=== PATIENT | female | born 1955 | race Caucasian/White ===

== ENCOUNTER 2018-02-22 16:02 | Emergency (ER) | payer MEDICAID, OTHER ==
[2018-02-22 16:02] VITALS: BMI 31.3
[2018-02-22 16:13] VITALS: BP 145/81; PULSE 78; RESP 18; TEMP 98; O2SAT 100
--- NOTE | 2018-02-22 18:27 | RAD ---
PROCEDURE: Left Foot Radiographs. HISTORY: left foot plantar pain, no trauma COMPARISON: None. FINDINGS: BONES: Normal. No fracture. JOINTS: Normal. SOFT TISSUES: Normal. OTHER FINDINGS: None. IMPRESSION: Normal left foot radiographs.
--- NOTE | 2018-02-22 18:34 | C.PDOC ---
History Of Present Illness 62 year old female presents to the ED c/o on going plantar left foot pain for the past 2 weeks. Patient denies any injury, trauma, fall, weakness, numbness. Time Seen by Provider: 02/22/18 16:25 Chief Complaint (Nursing): Lower Extremity Problem/Injury History Per: Patient History/Exam Limitations: no limitations Onset/Duration Of Symptoms: Days Current Symptoms Are (Timing): Still Present Recent travel outside of the [place]: No Additional History Per: Patient - Ankle/Foot Description Of Injury: Other Currently Unable To: Bend Or Move Past Medical History Reviewed: Historical Data, Nursing Documentation, Vital Signs Vital Signs: Last Vital Signs Temp 98 F 02/22/18 16:09 Pulse 78 02/22/18 16:09 Resp 18 02/22/18 16:09 BP 145/81 02/22/18 16:09 Pulse Ox 100 02/22/18 18:34 - Medical History PMH: Anemia, Arthritis, Colonic Polyps, HTN, Hypercholesterolemia, Hypothyroidism Denies: Chronic Kidney Disease Surgical History: No Surg Hx - [facility] Procedures ENDOSC POLYPECTOMY OF LG INTEST (09/22/13) Family History: States: Unknown Family Hx - Social History Hx Alcohol Use: No Hx Substance Use: No - Immunization History Hx Tetanus Toxoid Vaccination: No Hx Influenza Vaccination: No Hx Pneumococcal Vaccination: No Review Of Systems Constitutional: Negative for: Fever, Chills Cardiovascular: Negative for: Chest Pain Respiratory: Negative for: Shortness of Breath Gastrointestinal: Negative for: Abdominal Pain Musculoskeletal: Positive for: Foot Pain Skin: Negative for: Rash Physical Exam - Physical Exam Appears: Non-toxic, No Acute Distress Skin: Normal Color, Warm, Dry Head: Atraumatic, Normacephalic Eye(s): bilateral: Normal Inspection Nose: No Discharge Oral Mucosa: Moist Extremity: Normal ROM, Tenderness (lateral plantar aspect left mid foot. Mid foot has a callus which is tender to palpation ), Capillary Refill (< 2 seconds) , No Swelling Pulses: Left Dorsalis Pedis: Normal, Right Dorsalis Pedis: Normal Neurological/Psych: Oriented x3, Normal Motor, Normal Sensation Gait: Steady ED Course And Treatment O2 Sat by Pulse Oximetry: 100 (ON RA) Pulse Ox Interpretation: Normal - Other Rad Left Foot X-Ray X-Ray: Read By Radiologist Interpretation: Accession No. : [id number]. Patient Name / ID : SANDRA Headley / [id number]. Exam Date : 02/22/2018 17:21:28 ( Approved ). Study Comment : Sex / Age : F / [id number]. Creator : Smooth See MD. Dictator : Smooth See MD. Furnace Checker : Country Director : Smooth See MD. Approver2 : Report Date : 02/22/2018 18:26:21. My Comment : . PROCEDURE: Left Foot Radiographs. HISTORY: left foot plantar pain, no trauma. COMPARISON: None. FINDINGS: BONES: Normal. No fracture. JOINTS: Normal. SOFT TISSUES: Normal. OTHER FINDINGS: None. IMPRESSION: Normal left foot radiographs. Medical Decision Making Medical Decision Making: Impression: left foot pain Plan: * Left foot X-Ray Patient was given information for follow up with acid bleacher in 2 days for further evaluation. Disposition - Disposition Referrals: Everardo Braswell DPM [Staff Provider] - Darryl Argueta DPM [Doctor Podiatric Medicine] - Yue Enriquez DPM [Staff Provider] - Tino Enriquez DPM [Medical Doctor] - Disposition: HOME/ ROUTINE Disposition Time: 18:32 Condition: STABLE Additional Instructions: Follow up with PMD and Competitive Athlete within 1-2 days. Return to ED if feel worse. Prescriptions: Naproxen [Naprosyn] 1 tab PO BID PRN #25 tab PRN Reason: Pain Famotidine [Pepcid] 20 mg PO BID #20 tab Instructions: Corns and Calluses Forms: [facility] (Croatian) - Clinical Impression Clinical Impression: Foot pain - PA / DROP FORGE OPERATOR / Resident Statement MD/DO has reviewed & agrees with the documentation as recorded. - Scribe Statement The provider has reviewed the documentation as recorded by the Scribe Parth Plummer All medical record entries made by the Scribe were at my direction and personally dictated by me. I have reviewed the chart and agree that the record accurately reflects my personal performance of the history, physical exam, medical decision making, and the department course for this patient. I have also personally directed, reviewed, and agree with the discharge instructions and disposition.
== END 2018-02-22 18:55 | disposition home or self-care (01) ==
LOC: C.ER 16:02
DX: M79.672 Pain in left foot (principal)

== ENCOUNTER 2018-09-17 15:27 | Emergency (ER) | payer MEDICAID ==
[2018-09-17 15:28] VITALS: BMI 31.3
--- NOTE | 2018-09-17 17:43 | C.PDOC ---
History Of Present Illness 63 year old female with history of diabetes, hypertension, and goiter presents to ED complaining of bilateral sore throat for the past few days associated with a cough. Patient reports it hurts when she swallows and eats. Denies fever, chills, shortness of breath, weakness, numbness, sick contacts. Time Seen by Provider: 09/17/18 15:48 Chief Complaint (Nursing): ENT Problem History Per: Patient Onset/Duration Of Symptoms: Days Current Symptoms Are (Timing): Still Present Past Medical History Reviewed: Historical Data, Nursing Documentation, Vital Signs Vital Signs: Last Vital Signs Temp 98 F 09/17/18 15:41 Pulse 83 09/17/18 15:41 Resp 20 09/17/18 15:41 BP 145/81 09/17/18 15:41 Pulse Ox 99 09/17/18 15:41 - Medical History PMH: Anemia, Arthritis, Colonic Polyps, HTN, Hypercholesterolemia, Hypothyroidism Denies: Chronic Kidney Disease Surgical History: No Surg Hx - [facility] Procedures ENDOSC POLYPECTOMY OF LG INTEST (09/22/13) Family History: States: No Known Family Hx - Social History Hx Alcohol Use: No Hx Substance Use: No - Immunization History Hx Tetanus Toxoid Vaccination: No Hx Influenza Vaccination: No Hx Pneumococcal Vaccination: No Review Of Systems Constitutional: Negative for: Fever, Chills ENT: Positive for: Throat Pain (Bilateral) Respiratory: Positive for: Cough. Negative for: Shortness of Breath Neurological: Negative for: Weakness, Numbness Physical Exam - Physical Exam Appears: Non-toxic, No Acute Distress Skin: Warm, Dry Head: Atraumatic, Normacephalic Eye(s): bilateral: PERRL, EOMI Ear(s): Bilateral: Normal Oral Mucosa: Moist Neck: Other (Very large non tender goiter located from middle of neck to right side of neck. ) Chest: Symmetrical, No Deformity Cardiovascular: Rhythm Regular, No Murmur Respiratory: Normal Breath Sounds, No Rales, No Rhonchi, No Wheezing Neurological/Psych: Oriented x3, Normal Speech, Normal Cognition ED Course And Treatment O2 Sat by Pulse Oximetry: 99 (RA) Pulse Ox Interpretation: Normal Medical Decision Making Medical Decision Making: pt with sore throat and cough x 3 days; no fever. rapid strep neg. pt with dec pain s/p tylenol. pt advised to f/u with head and neck surgeon for goiter, advised that it could cause throat problems, pain, diff breathing m if left untreated. advised to f/u pmd on wednesday for re-eval and flu vaccine. Disposition Counseled Patient/Family Regarding: Studies Performed, Diagnosis, Need For Followup, Rx Given - Disposition Referrals: Yanira Dempsey [Medical Doctor] - Disposition: HOME/ ROUTINE Disposition Time: 17:43 Condition: GOOD Additional Instructions: Please take Tylenol for pain and gargle with warm salty water several times a day. Follow up with Dr Dempsey on Wednesday for re-evaluation and also with your head and neck surgeon for evaluation of goiter as soon as possible as this may be a cause of your throat pain. Return to ER for any difficulty breathing, swallowing or other concerns. Prescriptions: Acetaminophen [Tylenol 325mg tab] 650 mg PO Q6 #30 tab Instructions: Viral Pharyngitis (DC) Forms: [facility] (Omani), General Discharge Instructions - Clinical Impression Clinical Impression: Pharyngitis - PA / NICU RN / Resident Statement MD/DO has reviewed & agrees with the documentation as recorded. - Scribe Statement The provider has reviewed the documentation as recorded by the Scribe Raul Babbed All medical record entries made by the Scribe were at my direction and personally dictated by me. I have reviewed the chart and agree that the record accurately reflects my personal performance of the history, physical exam, medical decision making, and the department course for this patient. I have also personally directed, reviewed, and agree with the discharge instructions and disposition.
[2018-09-17 17:54] VITALS: BP 148/78; PULSE 78; RESP 18; TEMP 98.1
[2018-09-17 17:55] VITALS: O2SAT 99
== END 2018-09-17 17:55 | disposition home or self-care (01) ==
LOC: C.ER 15:27
DX: J02.9 Acute pharyngitis, unspecified (principal); E11.9 Type 2 diabetes mellitus without complications; I10 Essential (primary) hypertension; E78.00 Pure hypercholesterolemia, unspecified; E03.9 Hypothyroidism, unspecified